=== PATIENT | female | born 1995 | race Caucasian/White ===

== ENCOUNTER → 2018-11-28 | Outpatient (REF) | payer OTHER ==
[2018-11-28 22:28] LABS: CHLAMYDIA DNA AMPLIFICATION NEGATIVE (NEGATIVE); GC DNA AMPLIFICATION NEGATIVE (NEGATIVE)
== END ==
LOC: M SFHCLERA 16:12
PROVIDERS: ATTEND Physician Assistant
DX: N89.8 Other specified noninflammatory disorders of vagina (principal)

== ENCOUNTER 2019-01-07 12:40 | Emergency (ER) | payer OTHER ==
[~2019-01-07] VITALS: Ht 177.8 cm; Wt 101.8 kg
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
[2019-01-07 14:35] VITALS: BP 126/78
== END 2019-01-07 14:37 | disposition home or self-care (01) ==
LOC: M ED 12:40
DX: Z04.1 Encounter for examination and observation following transport accident (principal); Z3A.22 22 weeks gestation of pregnancy

== ENCOUNTER 2019-04-03 21:40 | Outpatient (CLI) | payer OTHER ==
[~2019-04-03] VITALS: Ht 177.8 cm; Wt 112.4 kg
[2019-04-03 22:02] VITALS: BP 137/81
[2019-04-03] MEDS ORDERED: GNP28TAB2 PO (22:05)
[2019-04-03 22:44] VITALS: BP 127/77
[2019-04-03 23:58] VITALS: BP 134/70
[2019-04-04 01:33] VITALS: BP 129/71
--- NOTE | 2019-04-04 06:04 | IPNPDOC ---
Text Note Date of Service The patient was seen on 04/04/19. NOTE Triage Note Aysha is a 23yo with SIUP at approx 34wk who presents with a few assorted complaints. She has had low back pain, rare ctx (she thinks), and occasional "spots" in her vision. She mentioned all of this to her mother who told her she may have pre-eclampsia, which she googled, and figured she should get checked out. No BRUCE. No RUQ pain. No LOF. No VB. Good movement. Vitals wnl (normotensive), afebrile General: WDWN, resting comfortably sitting up in bed and conversant Abdomen: soft, gravid, NTTP Extremities: no edema of BLE Cat I FHRT with +accels, -decels, mod kathleen [place]: rare ctx Assessment: Aysha is a 23yo with SIUP at approx 34wk with NO signs of pre-eclampsia, having normal blood pressures. Reassuring status. Plan: -Safe for discharge home -Keep next centering visit on Saturday -Tylenol or warm bath for any back discomfort -Return precautions discussed. Dr. Renae Dillon MD VS,Chelsey, I+O VS, Chelsey I+O Vital Signs Date Time Temp Pulse Resp B/P (MAP) Pulse Ox O2 Delivery O2 Flow Rate FiO2 04/04/19 01:33 86 18 129/71 (90) 04/03/19 22:02 98.5 Renae Dillon MD Apr 04, 2019 06:04
== END 2019-04-04 01:35 | disposition home or self-care (01) ==
LOC: M LDO 21:40
PROVIDERS: ATTEND Obstetrics & Gynecology
DX: O26.893 Other specified pregnancy related conditions, third trimester (principal); M54.5 Low back pain; Z3A.34 34 weeks gestation of pregnancy; O99.89 Other specified diseases and conditions complicating pregnancy, childbirth and the puerperium; H53.9 Unspecified visual disturbance
CPT/HCPCS: 59025; G0378; G0463

== ENCOUNTER 2019-04-23 12:52 | Outpatient (CLI) | payer OTHER ==
[~2019-04-23] VITALS: Ht 177.8 cm; Wt 114.7 kg
[~2019-04-23 12:52] MED LIST: GNP28TAB2 PO
[2019-04-23 13:04] VITALS: BP 119/83
--- NOTE | 2019-04-23 13:45 | IPNPDOC ---
Text Note Date of Service The patient was seen on 04/23/19. NOTE patient is 23 yo G1 @ 37+1wks gestation presents with concern for LOF x many days. report having intermittent lower back pain. denies VB. +fm. Vitals: normal nad abd: gravid,soft, nt, cephalic by jefe le: no edema/erythema/tenderness speculum: neg pooling, neg valsalva normal white discharge, no lesion, nt cervix visually closed ferning negative CE: closed/long/high, posterior, medium fht: 145/mod kathleen/pos accel/no decel toco: occasional ctx a/p patient without e/o ROM, not in labor. Discussed s/s of labor and ROM with patient. return precautions given. f/u with regularly scheduled appointment. DO LIZ Day LUAT N. DO Apr 23, 2019 13:45
== END 2019-04-23 13:44 | disposition home or self-care (01) ==
LOC: M LDO 12:52
PROVIDERS: ATTEND Obstetrics & Gynecology
DX: O26.893 Other specified pregnancy related conditions, third trimester (principal); N89.8 Other specified noninflammatory disorders of vagina; M54.5 Low back pain; Z3A.37 37 weeks gestation of pregnancy
CPT/HCPCS: 59025; G0378; G0463

== ENCOUNTER 2019-05-07 13:11 | Outpatient (CLI) | payer OTHER ==
[~2019-05-07] VITALS: Ht 177.8 cm; Wt 116.6 kg
[2019-05-07 13:24] VITALS: BP 110/71
--- NOTE | 2019-05-07 14:49 | IPNPDOC ---
Text Note Date of Service The patient was seen on 05/07/19. NOTE patient is a 23 yo G1 @39WKS gestation presents with concern for lower back pain that comes and goes. denies LOF/VB. +FM. vitals: normal nad abd: gravid, soft, nt, cephalic by jefe's le: no edema/erythema/tenderness fht: 130/mod kathleen/pos accel/no decel toco: irregular ctx ce: too high to reach. a/p patient @ 39wks, not in labor. discussed with patient s/s of labor. return p recautions given. f/u with regular clinic appointment. Barb, VS,Ameee, I+O VS, Ameee, I+O Vital Signs Date Time Temp Pulse Resp B/P (MAP) Pulse Ox O2 Delivery O2 Flow Rate FiO2 05/07/19 13:24 98.7 93 18 110/71 (84) LONDON HILL DO May 07, 2019 14:49
== END 2019-05-07 14:48 | disposition home or self-care (01) ==
LOC: M LDO 13:11
PROVIDERS: ATTEND Obstetrics & Gynecology
DX: O26.893 Other specified pregnancy related conditions, third trimester (principal); M54.5 Low back pain; O47.1 False labor at or after 37 completed weeks of gestation; Z3A.39 39 weeks gestation of pregnancy
CPT/HCPCS: 59025; G0378; G0463

== ENCOUNTER 2019-05-21 07:35 | Inpatient (IN) | payer OTHER ==
[~2019-05-21] VITALS: Ht 177.8 cm; Wt 119.4 kg
[2019-05-21] VITALS (32 sets, daily range): BP systolic 102–230; BP diastolic 54–154
[2019-05-21] MEDS ORDERED: LACTATED RINGER'S 1000 ML IV STA (08:10)
[2019-05-21] MEDS ORDERED: MAPA500T2 PO (08:55)
[2019-05-21] MEDS: LR 1,000 ML IV SCH ×2 (09:18→16:10)
[2019-05-21 09:19] LABS: HEMATOCRIT 36.9 % (36.0-47.0); HEMOGLOBIN 11.9 g/dl (12.0-15.5); MEAN CORPUSCULAR HEMOGLOBIN 25.9 pg (27.0-33.0); MEAN CORPUSCULAR HGB CONC 32.2 g/dl (32.0-36.5); MEAN CORPUSCULAR VOLUME 80.2 fl (80.0-96.0); PLATELET COUNT, AUTOMATED 151 10^3/uL (150-450)
[2019-05-21] MEDS ORDERED: OXYTOCIN DRIP 30 UNITS in IV 1 EA IV SCH (14:00)
[2019-05-21] MEDS ORDERED: FENTANYL 2MCG/ML ROPIVACAINE 0.2% IN 0.9% NACL 100ML IVBAG As Ordered ONE (18:34)
[2019-05-21] MEDS ORDERED: FENTANYL/ROPIVACAINE/NACL BAG 100 ML EPIDURAL SCH (18:45)
[2019-05-21] MEDS ORDERED: REFRIGERATOR IV KEYS XX PRN (18:45)
[2019-05-21] MEDS ORDERED: diphenhydrAMINE INJ 50MG/ML VIAL (J1200) IV PRN (18:45)
[2019-05-21] MEDS ORDERED: ONDANSETRON 4MG/2ML VIAL (J2405) IV PRN (18:45)
[2019-05-21] MEDS ORDERED: EPIDURAL/PCA KEYS XX PRN (18:45)
[2019-05-21] MEDS ORDERED: ePHEDrine SULFATE 25 MG/5 ML(5MG/ML) SYRINGE IV PRN (18:45)
[2019-05-21] MEDS ORDERED: EPIDURAL COMMENT XX SCH (18:45)
[2019-05-21] MEDS ORDERED: LACTATED RINGER'S 1000 ML IV PRN (18:45)
[2019-05-21] MEDS ORDERED: NALOXONE INJ 0.4 MG/1 ML VIAL (J2310) IV PRN (18:45)
[2019-05-21] MEDS ORDERED: ePHEDrine SULFATE 25 MG/5 ML(5MG/ML) SYRINGE As Ordered ONE (19:31)
--- NOTE | 2019-05-21 21:04 | IPNPDOC ---
Text Note Date of Service The patient was seen on 05/21/19. NOTE patient is a 23 yo G1 @ 41+1wks gestation admitted for IOL for pending post d ates. patient has epidural for pain management. her induction started with hall bulb which came out around 1600. pit: 6mU vitals: normal NAD fht: 145/mod kathleen/no accel/episodic decels toco: unable to monitor contraction adequately ce: 5/75/-2, AROM clear. IUPC placed a/p patient in latent labor, IUPC placed to categorize decels. disposition pending fht cat. VS,Fishbone, I+O VS, Fishbone, I+O Laboratory Tests 05/21/19 08:47 Vital Signs Date Time Temp Pulse Resp B/P (MAP) Pulse Ox O2 Delivery O2 Flow Rate FiO2 05/21/19 19:44 90 108/54 (72) 05/21/19 15:13 97.0 18 LONDON HILL DO May 21, 2019 21:04
[2019-05-21] MEDS ORDERED: LR 1,000 ML IV ONE (21:15)
[2019-05-22] MEDS ORDERED: OXYTOCIN DRIP 30 UNITS in IV 1 EA IV SCH (00:03)
[2019-05-22] MEDS ORDERED: DIBUCAINE 1% OINTMENT 30GM TOP PRN (00:15)
[2019-05-22] MEDS ORDERED: RHOGAM 300 MCG (1500 IU) INJ (J2790) IM SCH (00:15)
[2019-05-22] MEDS ORDERED: MEASLES,MUMPS,RUBELLA VACCINE INJ (MMR-II) (90707) SC SCH (00:15)
[2019-05-22 00:18] VITALS: BP 127/60
[2019-05-22 00:33] VITALS: BP 121/68
[2019-05-22 00:47] VITALS: BP 118/65
--- NOTE | 2019-05-22 01:02 | DNPDOC ---
[facility] Delivery Note Delivery Note DATE OF DELIVERY: 05/22/2019 PREDELIVERY DIAGNOSIS: 41+1/7 weeks' gestation and labor. POST DELIVERY DIAGNOSIS: Delivered. PROCEDURE: Forceps Assisted Vaginal Delivery PAYROLL CONSULTANT: Dr. Dayna Day DO ANESTHESIA: Epidural ESTIMATED BLOOD LOSS: 300 mL. FINDINGS: 3600gm male , Score 8/9 DELIVERY SUMMARY: fht: 150/minimal variability/no accel/recurrent lates toco: ctx q 2mins FORCEPS DELIVERY NOTE Counseled Low forceps delivery - VERBAL Indication: none reassuring heart tracing Checklist Cervix: C/C/+3 Presentation, Position: OA Anesthesia: functional epidural Membranes ruptured: yes Pelvis: adequate by clinical pelvimetry for EFW 3700 gm Episiotomy: No Bladder: hall recently removed C/Section available: Yes C/Section offered: Yes Consent pt: Yes - verbal Provider: Dr. Dayna Day FHT: 150 / min variability / no accel / recurrent late decel with pushing and slow return to baseline CTX: every 2 mins Counseled patient on indication/alternative and risks of forceps delivery: maternal vaginal lacerations, laceration/bruising, internal bleeding as well as permanent damages, episiotomy or extension, possible need for section. Questions answered, patient desires to proceed. Lorenzo forceps checked for integrity and match. Dorsal lithotomy position. Forceps placed and adjusted. Placement checked confirmed correct placement perpendicular to sagittal suture. Head delivered over 1 set of contractions in OA position. Forceps removed. Baby restituted LOT. Anterior (right) shoulder delivered with gentle guidance. Posterior shoulder delivered with gentle upward guidance. Body followed easily there-after. Baby with vigorous cries and placed on maternal abdomen. Cord clamped x 2 and cut by FOB. Pitocin bolus started. Placenta delivered spontaneously shortly after baby delivered. Placenta with marginal cord insertion, intact, three vessels cord. Fundus massaged to firm. Inspection of vagina and cervix revealed second degree and right vaginal sulcal laceration. Rectal exam reveals thin vaginal rectal s eptum, no rectal mucosal injury. Lacerations repaired in usual fashion noted to be hemostatic using 3-0 and 2-0 vicryl suttures. Fundus remains firm with light bleeding. Baby brought to NICU for monitoring per hospital protocol after operative vaginal delivery. EBL 300cc. DO LIZ Day LUAT N. DO May 22, 2019 00:13
[2019-05-22] MEDS: ACETAMINOPHEN TAB 650MG DOSE (2X325MG) PO PRN ×2 (01:39→16:41)
[2019-05-22] MEDS: IBUPROFEN 800 MG TAB PO PRN ×3 (01:39→19:36)
[2019-05-22 03:30] VITALS: BP 127/60
[2019-05-22 06:00] VITALS: BP 111/57
[2019-05-22] MEDS ORDERED: ACETAMINOPHEN SUSP DYE FREE 160 MG/5 ML UDC PO PRN (08:45)
[2019-05-22] MEDS ORDERED: LIDOCAINE 1% SDV 5 ML VIAL SC PRN (08:45)
[2019-05-22] MEDS: PRENATAL VITAMINS CHEWABLE TABLET PO SCH (09:28)
[2019-05-22] MEDS: DOCUSATE SODIUM 100 MG CAP PO SCH ×2 (09:28→19:36)
[2019-05-22 18:28] VITALS: BP 149/77
--- NOTE | 2019-05-23 04:46 | IPNPDOC ---
Progress Note Date of Service: May 23, 2019 Day#: 2 Progress Note PPD 2 SUBJECT: Aysha is a 23yo [id number] s/p uncomplicated FAVD for NRFHT late in the evening on 05/21, doing well day # 2. She has been ambulating, voiding spontaneously without issue and tolerating regular diet. Breast feeding without issue using nipple shield. Reports lochia is like a normal period. No f/c/n/v/CP/SOB. OBJECTIVE: VITAL SIGNS: Within normal limits, afebrile. Alert and oriented times three. Abdomen: Fundus firm at U-2. Soft, NTTP. Extremities: no pain with palpation of calves ASSESSMENT: Aysha is a 23yo [id number] s/p uncomplicated FAVD for NRFHT late in the evening on 05/21, doing well day # 2. Vitals within normal limits, afebrile, hemodynamically stable with no evidence of infection. PLAN: 1. Routine care 2. Tylenol and Motrin for pain. 3. Encourage breast feeding and ambulation. 4. Regular diet 5. 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 Likely discharge home tomorrow if meeting all milestones Dr. Renae Dillon MD VS, I&O, 24H, Fishbone Vital Signs/I&O Vital Signs Date Time Temp Pulse Resp B/P (MAP) Pulse Ox O2 Delivery O2 Flow Rate FiO2 05/22/19 18:28 97.9 95 18 149/77 (101) 99 Room Air I&O- Last 24 Hours up to 6 AM 05/23/19 06:00 Output Total 500 ml Balance -500 ml Renae Dillon MD May 23, 2019 04:46
[2019-05-23 06:00] VITALS: BP 116/64
[2019-05-23] MEDS: IBUPROFEN 800 MG TAB PO PRN (06:30)
[2019-05-23] MEDS: PRENATAL VITAMINS CHEWABLE TABLET PO SCH (09:13)
[2019-05-23] MEDS: DOCUSATE SODIUM 100 MG CAP PO SCH (09:13)
[2019-05-23] MEDS ORDERED: DIBU10OI TOP (12:06)
[2019-05-23] MEDS ORDERED: DOCU100C16 PO (12:06)
[2019-05-23] MEDS ORDERED: PRENCHW PO (12:06)
[2019-05-23] MEDS ORDERED: IBUP80TA PO (12:06)
--- NOTE | 2019-05-24 20:13 | IPN ---
DATE: 05/22/2019 This patient and her requested circumcision of their male , after discussing the risks and benefits of circumcision, medical and nonmedical indications, penile block and aftercare, expressed understanding of penile block, aftercare and bleeding, signed the consent form, all questions were answered. 20-minute discussion. We await the clearance by the human service worker.
--- NOTE | 2019-05-24 20:28 | DSES ---
DATE OF ADMISSION: 05/21/2019 DATE OF DISCHARGE: 05/23/2019 This lady is a 23-year-old 1 now para 1, was admitted for induction of labor at late term at 41 and 1 weeks' of gestation, had a forceps delivery of live male , 7 pounds 15 ounces, 3600 grams, scores of 8 and 9 at 1 and 5 minutes respectively. No issues with the vaginal delivery or forceps delivery. Baby was in the NICU as protocol for 4 hours for evaluation because of forceps delivery. Admitting hemoglobin 11.9, hematocrit 36.9 and platelets were 151. On discharge her blood pressure was 116/64, respirations 17, pulse 96, temperature 98.4. We discussed phlebitis, cystitis, mastitis, endometritis and cellulitis, diet, exercise, pain management, perineal, breast and wound care. The patient had medications dispensed at [facility], does not require any control, is being deployed. She has an appointment with pediatrics at [facility] for the baby and will case picker her medications that day. The rest of the examination is unremarkable. Normocephalic, atraumatic. Neck full range of motion. Pupils equal and reactive to light. Distal pulses are symmetric. No evidence of DVT, PE or superficial phlebitis. Chest is clear bilaterally to bases. No wheezes or rhonchi. No CVA tenderness. Abdomen soft. Uterus two below. Lochia is moderate. Four quadrant bowel sounds are noted. Perineum is intact. She has no rashes, lesions or pruritus. No arthralgia or myalgia. No complaint of joint pain. No complaint of cough, wheeze, shortness of breath or dyspnea on exertion. No nausea, vomiting, diarrhea or constipation. In summary, we have a late term gestation who delivered a live male infant. Plans are for discharge today, case picker medications at [facility] on Saturday.
== END 2019-05-23 13:40 | disposition home or self-care (01) | DRG 807 ==
LOC: M LDI 07:35 → M OBS 05-22 01:56
PROVIDERS: ADMIT Advanced Practice Midwife; ATTEND Obstetrics & Gynecology
PROC: 3E033VJ Introduction of Other Hormone into Peripheral Vein, Percutaneous Approach (ICD-10-PCS; 2019-05-21)
PROC: 10907ZC Drainage of Amniotic Fluid, Therapeutic from Products of Conception, Via Natural or Artificial Opening (ICD-10-PCS; 2019-05-21)
PROC: 10D07Z3 Extraction of Products of Conception, Low Forceps, Via Natural or Artificial Opening (ICD-10-PCS; principal; 2019-05-22)
PROC: 0KQM0ZZ Repair Perineum Muscle, Open Approach (ICD-10-PCS; 2019-05-22)
PROC: 0HQ9XZZ Repair Perineum Skin, External Approach (ICD-10-PCS; 2019-05-22)
DX: O48.0 Post-term pregnancy (principal); Z37.0 Single live birth; Z3A.41 41 weeks gestation of pregnancy; O76 Abnormality in fetal heart rate and rhythm complicating labor and delivery; O70.1 Second degree perineal laceration during delivery; O70.0 First degree perineal laceration during delivery